=== PATIENT | male | born 1980 | race Caucasian/White ===

== ENCOUNTER 2017-08-21 16:28 | Emergency (ER) | payer BC ==
--- NOTE | 2017-08-21 16:43 | CPEKG ---
Heart Rate: 63 RR Interval: 952 P-R Interval: 152 QRSD Interval: 102 QT Interval: 408 QTC Interval: 418 P [place]: 32 QRS [place]: 16 T Wave [place]: 59 EKG Severity - ABNORMAL ECG - EKG Impression: SINUS RHYTHM EKG Impression: PROBABLE LEFT VENTRICULAR HYPERTROPHY Electronically Signed By: Ijeoma Macedo 21-Aug-2017 20:33:22
[2017-08-21] MEDS ORDERED: NS 1,000 ML IV ONE (16:52)
[2017-08-21] MEDS ORDERED: ASPIRIN 81 MG CHEWABLE TAB PO ONE (16:52)
[2017-08-21] MEDS ORDERED: LORazepam 2 MG/ML INJ IVP ONE (16:52)
--- NOTE | 2017-08-21 16:56 | EDPHY ---
H & P Stated Complaint: Intermittent CP since yesterday, now increased pain and dizziness Time Seen by Provider: 08/21/17 16:53 HPI/ROS: HPI: This is a 36-year-old male who presents with Chief Complaint: Chest Location: Left anterior chest Quality: Dull discomfort Duration: 2-3 days Signs and Symptoms:+ lightheadedness, no shortness of breath, no palpitations, no nausea, no vomiting, no diaphoresis, no abdominal pain Timing: Sudden, intermittent Severity: 02/01 Context: Patient complains of left anterior chest pain over the last 2-3 days, nonradiating in nature, described as dull discomfort, occurred while he was at work which requires him to sit at a desk. Pain has occurred while he has been at rest and walking around. Denies pain when associated with food. He did feel lightheaded today and the pain lasted approximately 15-30 minutes so he became very concerned that it was cardiac in nature. He has no prior cardiac history. Denies any family cardiac history. Does have a history of transient elevated blood pressure that is followed by his primary care provider and associated with "when he does not take care of himself." He is not currently on any antihypertensive medications. He admits that his has been sick for the last several months and he has been under considerable stress. He did exercise for 20 minutes on the elliptical this morning and did not have any chest discomfort at that time. He ate and drink normally today. PCP is Dr. Santana. Has not taking any recent long distance trips. Denies tobacco use. Denies recreational drug use. Modifying Factors: Has not tried any [id number] medications. Comment: ROS: Constitutional: No fever, no chills, no weight loss Eyes: No blurred vision Respiratory: No shortness of breath, no cough Cardiovascular: + chest pain Gastrointestinal: No nausea, no vomiting no diarrhea Genitourinary: No dysuria Extremities: No myalgias Neurologic: No weakness, no numbness Skin: No rashes Hematologic: No bruising, no bleeding SOCIAL HISTORY: . 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 Source: Patient Exam Limitations: No limitations - Personal History Current Tetanus Diphtheria and Acellular Pertussis (TDAP): Yes - Medical/Surgical History Hx Asthma: No Hx Chronic Respiratory Disease: No Hx Diabetes: No Hx Cardiac Disease: No Hx Renal Disease: No Hx Cirrhosis: No Hx Alcoholism: No Hx HIV/AIDS: No Hx Splenectomy or Spleen Trauma: No Other PMH: Denies - Social History Smoking Status: Never smoked Drug Use: None Constitutional: Initial Vital Signs Temperature (C) 36.7 C 08/21/17 16:30 Heart Rate 59 L 08/21/17 16:30 Respiratory Rate 18 08/21/17 16:30 Blood Pressure 160/107 H 08/21/17 16:30 O2 Sat (%) 95 08/21/17 16:30 O2 Delivery Mode Room Air Allergies/Adverse Reactions: No Known Allergies Allergy (Unverified 01/21/13 11:18) Medical Decision Making - Diagnostics EKG Interpretation: 12 lead EKG: Indication: Chest pain Rhythm: Normal sinus rhythm, rate 63 beats per minute [place]: Normal Intervals: Normal QRS: Normal ST segments: Normal INTERPRETATION: Normal EKG The 12 lead EKG was interpreted by myself. No EKG for comparison. Imaging Results: Imaging Impressions Chest X-Ray 08/21/17 16:52 Impression: Normal. ED Course/Re-evaluation: EKG, labs, IV fluids, oral medication, IV medication ordered SERG risk is low. Suspect stress component as etiology. BP elevated upon arrival; 160/107. Given aspirin, 1 L normal saline, IV Ativan 1 mg Chest x-ray reviewed via PACs system and shows no pneumothorax/opacity/ effusion. EKG my interpretation showed no acute ischemic changes Troponin/D-dimer/proBNP all within normal limits. Reassessed patient 1 hour later; chest discomfort completely resolved. Blood pressure improved at discharge but SBP persists > 140 Advised to follow up with PCP for outpatient BP monitoring and determine if antihypertensive medications need to be started. If symptoms persist, Would benefit from referral to cardiology for outpatient stress testing. Discussed case with attending and as chest pain started 2-3 days ago, low risk and atypical in nature, only one troponin value is necessary. Differential Diagnosis: Chest pain including but not limited to myocardial ischemia, pulmonary embolus, chest wall pain, pleural inflammation and pulmonary infectious causes. - Data Points Laboratory Results: Laboratory Results 08/21/17 16:40 08/21/17 16:40 08/21/17 08/21/17 08/21/17 16:40 16:40 16:40 WBC 7.35 10^3/uL 10^3/uL (3.80-9.50) RBC 5.10 10^6/uL 10^6/uL (4.40-6.38) Hgb 15.6 g/dL g/dL (13.7-17.5) Hct 45.9 % % (40.0-51.0) MCV 90.0 fL fL (81.5-99.8) MCH 30.6 pg pg (27.9-34.1) MCHC 34.0 g/dL g/dL (32.4-36.7) RDW 12.2 % % (11.5-15.2) Plt Count 255 10^3/uL 10^3/uL (150-400) MPV 11.3 fL fL (8.7-11.7) Neut % (Auto) 48.7 % % (39.3-74.2) Lymph % (Auto) 40.7 % % (15.0-45.0) [place] % (Auto) 7.2 % % (4.5-13.0) Eos % (Auto) 2.3 % % (0.6-7.6) Baso % (Auto) 1.0 % % (0.3-1.7) Nucleat RBC Rel Count 0.0 % % (0.0-0.2) Absolute Neuts (auto) 3.58 10^3/uL 10^3/uL (1.70-6.50) Absolute Lymphs (auto) 2.99 10^3/uL 10^3/uL (1.00-3.00) Absolute Monos (auto) 0.53 10^3/uL 10^3/uL (0.30-0.80) Absolute Eos (auto) 0.17 10^3/uL 10^3/uL (0.03-0.40) Absolute Basos (auto) 0.07 10^3/uL 10^3/uL (0.02-0.10) Absolute Nucleated RBC 0.00 10^3/uL 10^3/uL (0-0.01) Immature Gran % 0.1 % % (0.0-1.1) Immature Gran # 0.01 10^3/uL 10^3/uL (0.00-0.10) PT 14.2 SEC SEC (12.0-15.0) INR 1.11 (0.83-1.16) APTT 30.4 SEC SEC (23.0-38.0) D-Dimer < 0.27 ug/mLFEU ug/mLFEU (0.00-0.50) Sodium 139 mEq/L mEq/L (134-144) Potassium 3.5 mEq/L mEq/L (3.5-5.2) Chloride 102 mEq/L mEq/L (97-110) Carbon Dioxide 25 mEq/l mEq/l (22-31) Anion Gap 12 mEq/L mEq/L (8-16) BUN 16 mg/dL mg/dL (7-23) Creatinine 0.9 mg/dL mg/dL (0.7-1.3) Estimated GFR > 60 Glucose 91 mg/dL mg/dL (70-100) Calcium 9.5 mg/dL mg/dL (8.5-10.4) Total Bilirubin 0.8 mg/dL mg/dL (0.1-1.4) Conjugated Bilirubin 0.3 mg/dL mg/dL (0.0-0.5) Unconjugated Bilirubin 0.5 mg/dL mg/dL (0.0-1.1) AST 22 IU/L IU/L (17-59) ALT 33 IU/L IU/L (21-72) Alkaline Phosphatase 54 IU/L IU/L (38-126) Troponin I < 0.012 ng/mL ng/mL (0.000-0.034) NT-Pro-B Natriuret Pep 60 pg/mL pg/mL (0-125) Total Protein 7.5 g/dL g/dL (6.3-8.2) Albumin 4.4 g/dL g/dL (3.5-5.0) Lipase 94 IU/L IU/L (23-300) Medications Given: Discontinued Medications Aspirin (Aspirin) 324 mg PO EDNOW ONE Stop: 08/21/17 16:53 Last Admin: 08/21/17 17:06 Dose: 324 mg Sodium Chloride (Ns) 1,000 mls @ 0 mls/hr IV EDNOW ONE; Wide Open PRN Reason: Protocol Stop: 08/21/17 16:53 Last Admin: 08/21/17 17:09 Dose: 1,000 mls Lorazepam (Ativan Injection) 1 mg IVP EDNOW ONE Stop: 08/21/17 16:53 Last Admin: 08/21/17 17:10 Dose: 1 mg Departure - Departure Disposition: Home, Routine, Self-Care Clinical Impression: Elevated blood pressure reading, Atypical chest pain Condition: Good Instructions: Heart Healthy Diet (ED), Hypertension (ED), Chest Pain (ED) Additional Instructions: Please follow up with PCP in the next 5-7 days for outpatient BP monitoring and determine if antihypertensive medications need to be started. If symptoms persist, Would benefit from referral to cardiology for outpatient stress testing. Please follow a heart healthy diet, start exercise program, reduce stress in life. Referrals: Marty Santana MD [Primary Care Provider] - As per Instructions
[2017-08-21 16:57] LABS: % IMMATURE GRANULYOCYTES 0.1 % (0.0-1.1); ABSOLUTE IMMATURE GRANULOCYTES 0.01 10^3/uL (0.00-0.10); ADD DIFF? NO; ADD MORPH? NO; ADD SCAN? NO; ATYPICAL LYMPHOCYTE FLAG 10 (0-99); FRAGMENT RBC FLAG 0 (0-99); HEMATOCRIT 45.9 % (40.0-51.0); HEMOGLOBIN 15.6 g/dL (13.7-17.5); LEFT SHIFT FLG 0 (0-99); LIPEMIA HEMOLYSIS FLAG 90 (0-99); MEAN CELL HEMOGLOBIN 30.6 pg (27.9-34.1); MEAN PLATELET VOLUME 11.3 fL (8.7-11.7); PLATELET CLUMPS FLAG 0 (0-99); PLATELET COUNT 255 10^3/uL (150-400); RED CELL DISTRIBUTION WIDTH 12.2 % (11.5-15.2)
[2017-08-21 17:05] LABS: ALANINE AMINOTRANSFERASE 33 IU/L (21-72); ALBUMIN 4.4 g/dL (3.5-5.0); ALKALINE PHOSPHATASE 54 IU/L (38-126); ANION GAP 12 mEq/L (8-16); ASPARTATE AMINOTRANSFERASE 22 IU/L (17-59); BILIRUBIN,TOTAL 0.8 mg/dL (0.1-1.4); BILIRUBIN-CONJUGATED 0.3 mg/dL (0.0-0.5); BILIRUBIN-UNCONJUGATED 0.5 mg/dL (0.0-1.1); CALCIUM 9.5 mg/dL (8.5-10.4); CARBON DIOXIDE 25 mEq/l (22-31); CHLORIDE 102 mEq/L (97-110); CREATININE 0.9 mg/dL (0.7-1.3); GLOMERULAR FILTRATION RATE > 60; GLUCOSE 91 mg/dL (70-100); POTASSIUM 3.5 mEq/L (3.5-5.2); SODIUM 139 mEq/L (134-144); TOTAL PROTEIN 7.5 g/dL (6.3-8.2)
[2017-08-21 17:10] LABS: INR 1.11 (0.83-1.16); PROTIME(PATIENT) 14.2 SEC (12.0-15.0)
[2017-08-21 17:11] LABS: APTT 30.4 SEC (23.0-38.0)
[2017-08-21 17:16] LABS: TROPONIN I < 0.012 ng/mL (0.000-0.034)
[2017-08-21 17:42] VITALS: BP 136/94; PULSE 64; RESP 18; TEMP 98.4; O2SAT 96
== END 2017-08-21 17:52 | disposition home or self-care (01) ==
DX: R07.89 Other chest pain (principal); R03.0 Elevated blood-pressure reading, without diagnosis of hypertension; E86.9 Volume depletion, unspecified
CPT/HCPCS: 96374; J2060